=== PATIENT | female | born 1965 | race Caucasian/White ===

== ENCOUNTER 2020-11-11 10:12 | Emergency (ER) | payer OTHER ==
[2020-11-11] MEDS ORDERED: prednisoLONE Acetate 1% Ophth Susp 5 ML Bottle EYERT ONE (10:45)
[2020-11-11] MEDS ORDERED: Gentamicin 0.3% Ophth Soln 5 ML Bottle EYERT ONE (10:48)
--- NOTE | 2020-11-11 10:54 | EDM.PDOC ---
ED HPI GENERAL MEDICAL PROBLEM - General Chief Complaint: ENT Problem Stated Complaint: POSSIBLE PINK EYE Time Seen by Provider: 11/11/20 10:49 Source of Information: Reports: Patient History Limitations: Reports: No Limitations - History of Present Illness INITIAL COMMENTS - FREE TEXT/NARRATIVE: 55 y/o F c/o R eye drainage and irritation since last night. Pt states that she has not had any purulent discharge, fever, cough, chills. Does wear contacts last changed 9-1 of this month. Denies visual changes. Denies trauma, foreign bodies other complaints. Onset Date: 11/03/20 Onset Time: 18:00 Duration: Day(s): Location: Reports: Head Quality: Reports: Ache Severity: Mild Improves with: Reports: None Worsens with: Reports: None - Related Data Allergies Allergy/AdvReac Type Severity Reaction Status Date / Time No Known Allergies Allergy Verified 11/11/20 10:39 Home Meds: Home Meds . [No Known Home Meds] 11/11/20 [History] ED ROS ENT - Review of Systems Review Of Systems: Comprehensive ROS is negative, except as noted in HPI. ED EXAM, ENT - Physical Exam Exam: See Below Exam Limited By: No Limitations General Appearance: Alert, No Apparent Distress Eye Exam: Right Eye: Conjunctival Injection Ears: Normal External Exam, Normal Canal, Hearing Grossly Normal, Normal TMs Mouth/Throat: Normal Inspection, Normal Gums, Normal Lips, Normal Oropharynx, Normal Teeth Head: Atraumatic, Normocephalic Course - Vital Signs Last Recorded V/S: Last Vital Signs Temp 98.1 F 11/11/20 10:39 Pulse 76 11/11/20 10:39 Resp 16 11/11/20 10:39 BP 116/64 11/11/20 10:39 Pulse Ox 99 11/11/20 10:39 - Orders/Labs/Meds Meds: Medications Discontinued Medications Generic Name Dose Route Start Last Admin Trade Name Freq PRN Reason Stop Dose Admin Gentamicin Sulfate 5 ml 11/11/20 10:48 Gentamicin 0.3% Ophth Soln 5 Ml Bottle EYERT 11/11/20 10:49 ONETIME ONE Prednisolone Acetate 5 ml 11/11/20 10:45 Prednisolone Acetate 1% Ophth Susp 5 Ml Bottle EYERT 11/11/20 10:46 ONETIME ONE Departure - Departure Time of Disposition: 10:54 Disposition: Home, Self-Care 01 Condition: Good Clinical Impression: Conjunctivitis Qualifiers: Conjunctivitis type: acute Acute conjunctivitis type: unspecified Laterality: right Qualified Code(s): H10.31 - Unspecified acute conjunctivitis, right eye Scleritis Qualifiers: Laterality: right Qualified Code(s): H15.001 - Unspecified scleritis, right eye - Discharge Information *PRESCRIPTION DRUG MONITORING PROGRAM REVIEWED*: Not Applicable *COPY OF PRESCRIPTION DRUG MONITORING REPORT IN PATIENT BARB: Not Applicable Instructions: Bacterial Conjunctivitis, Pediatric Additional Instructions: Use the Gentamicin 1 drop to the right eye 4 x a day for 7 days. Use the steroid eye drops 1 drop to affected eye twice a day for three days. Sepsis Event Note (ED) - Focused Exam Vital Signs: Vital Signs Temp Pulse Resp BP Pulse Ox 11/11/20 10:39 98.1 F 76 16 116/64 99
== END 2020-11-11 11:19 | disposition home or self-care (01) ==
LOC: DL.ED 10:12
DX: H10.31 Unspecified acute conjunctivitis, right eye (principal); H15.001 Unspecified scleritis, right eye
CPT/HCPCS: 99282; A9270